=== PATIENT | female | born 1980 | race Caucasian/White ===

== ENCOUNTER → 2025-01-16 | Outpatient (CLI) | payer MEDICAID ==
--- NOTE | 2025-01-16 20:58 | MR ---
INDICATION: Patient age:Female; 44 years old; Reason for study: R27.0, R27.8; [facility]. COMPARISON: None. TECHNIQUE: Multi planar, multi sequence imaging was performed through the brain. The patient was then given 14 cc of Gadobutrol intravenously and multi planar, T1 fat-saturation images were obtained. MS protocol. FINDINGS: The jarrett-white junctions, ventricular system, basal cisterns appear unremarkable. Age-appropriate cer ebral parenchymal volume. Diffusion-weighted imaging shows no evidence of restricted diffusion to sug gest acute/subacute infarct. Intracranial arterial flow voids are maintained. Midline structures show no abnormality. Approximately 10 foci of high T2/FLAIR signal intensity are seen within the supraten torial subcortical white matter. Examples include right posterior subcortical frontal lobe 4 mm white matter focus measuring 4 mm (series 702, image 20) and a left posterior frontal lobe 4 mm focus (ser ies 702, image 21). The susceptibility weighted images do not reveal any evidence for micro-hemorrhag e. After administration of gadolinium, no abnormal enhancement is seen. The bone marrow signal is within normal limits. The paranasal sinuses and globes are unremarkable. IMPRESSION: 1. No evidence of intracranial mass, acute/subacute infarct, or abnormal enhancement. 2. Nonspecific white matter changes with etiologies including small vessel ischemic disease, demyelin ating disease, chronic migraines, vasculitis, Lyme disease or other considerations. [facility], , 01/16/2025 8:55 PM
== END | disposition home or self-care (01) ==
LOC: RADMRIMAIN 19:45
PROVIDERS: ATTEND Family Medicine
DX: R27.8 Other lack of coordination (principal); R90.82 White matter disease, unspecified; R27.0 Ataxia, unspecified; G43.909 Migraine, unspecified, not intractable, without status migrainosus; I67.82 Cerebral ischemia; L95.9 Vasculitis limited to the skin, unspecified
CPT/HCPCS: 70553; A9585

== ENCOUNTER → 2025-02-13 | Outpatient (CLI) | payer MEDICAID ==
--- NOTE | 2025-02-13 10:44 | MM ---
Reason for Exam: Screening (asymptomatic). Patient History: Menarche at age 11. Patient has no children. Premenopausal. Maternal grandmother had breast cancer at or over age 50. Paternal grandmother had breast cancer at or over age 50. Maternal aunt had breast cancer at or over age 50. Paternal aunt had breast cancer at or over age 50. Last menstrual period: 02/13/2025 Risk Values: Priya 5 year model risk: 0.9%. NCI Lifetime model risk: 10.6%. Prior Study Comparison: No prior studies available for comparison. Tissue Density: The breasts are heterogeneously dense, which may obscure small masses. Findings: Analyzed By CAD. Global asymmetry is posterior upper-outer quadrant of both breasts, left greater than right. No significant mass, suspicious microcalcification, or other discrete abnormality is seen. Overall Assessment: Benign, BI-RAD 2 Management: Screening Mammogram of both breasts in 1 year. Patient should continue monthly self-breast exams. A clinical breast exam by your physician is recommended on an annual basis. This exam should not preclude additional follow-up of suspicious palpable abnormalities. Note on Priya scores and lifetime risk: 1. A Priya score greater than 3% is considered moderate risk. If this is the case, consider specialist referral to assess eligibility for a risk reducing agent. 2. If overall lifetime risk for the development of breast cancer is 20% or higher, the patient may qualify for future screening with alternating mammogram and breast MRI. [facility], , 02/13/2025 10:41 AM. Electronically signed and approved by: Preeti Belcher M.D. Radiologist
== END | disposition home or self-care (01) ==
LOC: RADMAMWWP 09:15
PROVIDERS: ATTEND Family Medicine
DX: Z12.31 Encounter for screening mammogram for malignant neoplasm of breast (principal); R92.333 Mammographic heterogeneous density, bilateral breasts; Z80.3 Family history of malignant neoplasm of breast
CPT/HCPCS: 77063; 77067

== ENCOUNTER → 2025-04-14 | Outpatient (CLI) | payer MEDICAID ==
--- NOTE | 2025-04-18 14:33 | MR ---
EXAMINATION TYPE: MR cspine/tspine wo/w con DATE OF EXAM: 04/14/2025 8:57 AM COMPARISON: None. CLINICAL INDICATION: Female, 45 years old with history of R90.82 white matter abnormality, White romi er abnormality TECHNIQUE: Multiplanar multiecho imaging on a 3.0 Patti magnet is performed through the cervical spin e. IV Contrast: 14 mL Gadobutrol (None, if empty) FINDINGS: The craniovertebral junction is normal. Vertebral body alignment is normal. C7-T1: No focal disc herniation or significant disc bulge is evident. No spinal canal stenosis or n eural foraminal stenosis is present. C6-7: Subligamentous disc herniation is present with mild anterior thecal sac compression. No cord co ntact is evident. No spinal canal stenosis or neural foraminal stenosis.. C5-6: No focal disc herniation or significant disc bulge is evident. No spinal canal stenosis or aleisha ral foraminal stenosis is present. C4-5: Minimal disc bulge is present within the thecal sac flattening. No spinal canal stenosis or aleisha ral foraminal stenosis. No cord contact evident.. C3-4: No focal disc herniation or significant disc bulge is evident. No spinal canal stenosis or aleisha ral foraminal stenosis is present. C2-3: No focal disc herniation or significant disc bulge is evident. No spinal canal stenosis or aleisha ral foraminal stenosis is present. The sagittal plane there is suggestion of some minimal subligamentous disc herniation present without significant thecal sac compression at C2-C3, C3-4, C4-5 and C6-7. No abnormal enhancement is evident. No signal abnormality within the spinal cord IMPRESSION: 1. Mild disc bulging appears to be greatest at C6-7 level with subligamentous disc extension and mild anterior thecal sac compression. No stenosis. 2. There are additional levels of minimal subligamentous disc herniation in the sagittal plane discus sed above. No stenosis. EXAMINATION TYPE: MR cspine/tspine wo/w con DATE OF EXAM: 04/14/2025 8:57 AM COMPARISON: None. CLINICAL INDICATION: Female, 45 years old with history of R90.82 white matter abnormality, White romi er abnormality TECHNIQUE: Multiplanar, multiecho imaging on a 3.0 Patti magnet is performed through the thoracic spi ne. IV Contrast: 14 mL Gadobutrol (None, if empty) FINDINGS: Spinal cord maintains normal signal through its visualized course. Vertebral body alignment is normal. Vertebral body heights are preserved. Disc heights are preserved. Disc hydration levels are preserved. T6-7: There is a central right paracentral focal disc herniation with mild to moderate anterior theca l sac compression. There is cord contact. No cord deformity is evident. No spinal canal stenosis pres ent. T7-8: There is a small subligamentous disc herniation in the central canal. This has mild anterior th ecal sac compression. No spinal canal stenosis. No cord deformity is evident. T8-9: Very tiny disc herniation may be present in the right paracentral region and T8-9. No significa nt thecal sac compression is present. This is in close approximation of the spinal cord. No spinal ca nal stenosis. T10-11: Facet hypertrophy is present with moderate left posterior lateral thecal sac compression. Thi s comes in close approximation with the spinal cord. No spinal canal stenosis is present. No spinal canal stenosis is evident. IMPRESSION: 1. Few tiny disc protrusions and herniations discussed above. 2. The largest disc herniation appears to be a T6-7 with mild to moderate anterior thecal sac umesh yuridia and cord contact without deformity. No spinal canal stenosis. 3. No significant white matter changes are evident. [facility], , 04/18/2025 2:31 PM
== END | disposition home or self-care (01) ==
LOC: RADMRIMAIN 06:45
PROVIDERS: ATTEND Psychiatry & Neurology Neurology with Special Qualifications in Child Neurology
DX: M50.20 Other cervical disc displacement, unspecified cervical region (principal); R90.82 White matter disease, unspecified; G95.29 Other cord compression
CPT/HCPCS: 72156; 72157; A9585